=== PATIENT | male | born 1985 | race American Indian/Alaskan Native ===

== ENCOUNTER 2017-01-05 22:27 | Emergency (ER) | payer MEDICAID, OTHER ==
[2017-01-05 23:37] VITALS: BP 128/66
[2017-01-06] MEDS ORDERED: Ketorolac 30 MG/ML SDV IM ONE (00:04)
[2017-01-06 00:41] LABS: CHLORIDE,CL 106 mmol/L (101-111); SODIUM,NA 139 mmol/L (135-145)
--- NOTE | 2017-01-06 01:23 | EDM.PDOC ---
ED UPPER BACK/NECK PAIN/INJURY - General Chief Complaint: Back Pain or Injury Stated Complaint: SL AMB Time Seen by Provider: 01/05/17 23:40 Source of Information: Reports: Patient, EMS History Limitations: Reports: No limitations - History of Present Illness INITIAL COMMENTS - FREE TEXT/NARRATIVE: c/o neck pain and headache after playing basketball tonight. No new injury. States piled one month ago and seen in ER. ( Injury date per ED record September 2016) Pain similar to common pain since injury. Ran out of ibuprofen yesterday. Headache complaint not new for patient has had similar since initial incident. Also noting problems with memory since incident in September. Requesting repeat xrays. No clinic follow up. Denied drug use, admitted to shot of [employer]. Location: Reports: paraspinal, generalized (headache) Quality: Reports: Same as previous episode Severity: mild Context: Reports: trauma (remote), chronic pain/injury (since injury) Associated Symptoms: Reports: Headache. Denies: Nausea/vomiting, Weakness - Related Data Allergies/ADRs: Allergies Allergy/AdvReac Type Severity Reaction Status Date / Time No Known Allergies Allergy Verified 01/05/17 23:37 Home Meds: Home Meds . [No Known Home Meds] 09/21/13 [History] Past Medical History - Past Health History Medical/Surgical History: Denies Medical/Surgical History HEENT History: Reports: None Cardiovascular History: Reports: None Respiratory History: Reports: None Gastrointestinal History: Reports: None Genitourinary History: Reports: None Musculoskeletal History: Reports: None, Other (see below) Other Musculoskeletal History: Torn meniscus Neurological History: Reports: None, Migraines Psychiatric History: Reports: Depression Other Psychiatric History: suicidal thoughts past Endocrine/Metabolic History: Reports: None Hematologic History: Reports: None Immunologic History: Reports: None Oncologic (Cancer) History: Reports: None Dermatologic History: Reports: None Social & Family History - Family History Family Medical History: Noncontributory - Tobacco Use Smoking Status *Q: Current Every Day Smoker Years of Tobacco use: 17 Packs/Tins Daily: 0.1 Used Tobacco, but Quit: No Second Hand Smoke Exposure: No - Caffeine Use Caffeine Use: Reports: None - Alcohol Use Days Per Week of Alcohol Use: 0 - Recreational Drug Use Recreational Drug Use: No Drug Use in Last 12 Months: Yes Recreational Drug Type: Reports: Methamphetamine Recreational Drug Use Frequency: Socially - Living Situation & Occupation Living situation: Reports: with family Occupation: unemployed ED ROS GENERAL - Review of Systems Review Of Systems: See Below Constitutional: Reports: no symptoms HEENT: Reports: No symptoms Respiratory: Reports: No Symptoms Cardiovascular: Reports: No symptoms GI/Abdominal: Reports: No symptoms Musculoskeletal: Reports: neck pain Skin: Reports: no symptoms Neurological: Reports: Headache, Other (Notes nonspecific problems with memory since initial trauma in September) ED EXAM, UPPER BACK/NECK PAIN - Physical Exam Exam: See Below Exam Limited By: No limitations General Appearance: alert, mild distress (light sensitive, covering face with shirt) Eye Exam: bilateral eye: EOMI, PERRL Ears Exam: normal external exam, normal TMs Nose Exam: normal inspection Throat/Mouth Exam: Normal inspection Head Exam: atraumatic, normocephalic, scalp tenderness (bilateral occipital) Neck Exam: normal alignment, paraspinous muscle tender, tender lateral. No: limited range of motion, painful range of motion, spinous processes tender, tender midline Nexus Criteria: evidence of intoxication (faint odor ETOH). No: posterior, midline cervical tenderness, altered level of consciousness, focal neurological deficit, painful distracting injuries Cardiovascular/Respiratory: regular rate, rhythm, normal peripheral pulses GI/Abdominal: normal bowel sounds, soft Back Exam: normal inspection, full range of motion. No: paraspinal tenderness Extremities: normal inspection, normal range of motion Neurologic: no motor/sensory deficits, alert. No: motor weakness, sensory deficit Psychiatric: flat affect (avoidant slight agitation with admission question) Skin Exam: Normal color, Warm/dry. No: Diaphoresis, Ecchymosis Course - Vital Signs Last Recorded V/S: Last Vital Signs Temp 97.8 F 01/05/17 23:31 Pulse 71 01/05/17 23:31 Resp 18 01/05/17 23:31 BP 128/66 01/05/17 23:31 Pulse Ox 98 01/05/17 23:31 - Orders/Labs/Meds Labs: Laboratory Tests 01/06/17 01/06/17 01/06/17 Range/Units 00:14 00:14 00:40 WBC 7.1 (5.0-10.0) 10^3/uL RBC 4.84 (4.6-6.2) 10^6/uL Hgb 14.4 (14.0-18.0) g/dL Hct 43.2 (40.0-54.0) % MCV 89.3 (80-100) fL MCH 29.8 (27.0-34.0) pg MCHC 33.3 (33.0-35.0) g/dL Plt Count 210 (150-450) 10^3/uL Neut % (Auto) 55.1 (42.2-75.2) % Lymph % (Auto) 23.6 (20.5-50.1) % Ritchie % (Auto) 11.2 H (2-8) % Eos % (Auto) 9.5 H (1.0-3.0) % Baso % (Auto) 0.6 (0.0-1.0) % Sodium 139 (135-145) mmol/L Potassium 3.8 (3.6-5.0) mmol/L Chloride 106 (101-111) mmol/L Carbon Dioxide 26.0 (21.0-31.0) mmol/L Anion Gap 10.8 BUN 16 (7-18) mg/dL Creatinine 1.0 (0.6-1.3) mg/dL Est Cr Clr Drug Dosing 136.63 mL/min Estimated GFR (MDRD) > 60 BUN/Creatinine Ratio 16.00 Glucose 90 (74-105) mg/dL Calcium 8.8 (8.4-10.2) mg/dl Total Bilirubin 0.4 (0.2-1.0) mg/dL AST 63 H (10-42) IU/L ALT 101 H (10-60) IU/L Alkaline Phosphatase 95 (42-121) IU/L Total Protein 7.5 (6.7-8.2) g/dl Albumin 3.7 (3.2-5.5) g/dl Globulin 3.8 Albumin/Globulin Ratio 0.97 Urine Opiates Screen Negative (NEGATIVE) Ur Oxycodone Screen Negative (NEGATIVE) Urine Methadone Screen Negative (NEGATIVE) Ur Barbiturates Screen Negative (NEGATIVE) U Tricyclic Antidepress Negative (NEGATIVE) Ur Phencyclidine Scrn Negative (NEGATIVE) Ur Amphetamine Screen Positive H (NEGATIVE) U Methamphetamines Scrn Positive H (NEGATIVE) Urine MDMA Screen Negative (NEGATIVE) U Benzodiazepines Scrn Negative (NEGATIVE) Urine Cocaine Screen Negative (NEGATIVE) U Marijuana (THC) Screen Positive H (NEGATIVE) Ethyl Alcohol < 5 mg/dL Meds: Medications Discontinued Medications Generic Name Dose Route Start Last Admin Trade Name Aubrey PRN Reason Stop Dose Admin Ketorolac Tromethamine 30 mg 01/06/17 00:04 01/06/17 00:11 Toradol IM 01/06/17 00:05 30 mg ONETIME ONE Administration - Radiology Interpretation Free Text/Narrative:: CT head and neck negative. - Re-Assessments/Exams Free Text/Narrative Re-Assessment/Exam: 01/06/17 05:09 Toradol for discomfort, dozing , arouses easily. UDS positive for methamphetamine. Departure - Departure Time of Disposition: 01:20 Disposition: Home, Self-Care 01 Condition: good Clinical Impression: Neck pain, Methamphetamine abuse, Positive urine drug screen Headache Qualifiers: Headache type: unspecified Headache chronicity pattern: chronic headache Intractability: not intractable Qualified Code(s): R51 - Headache Instructions: Muscle Strain, [id number] Referrals: PCP,None [Primary Care Provider] - Forms: ED Department Discharge Additional Instructions: alternate tylenol and ibuprofen for discomfort follow up in clinic with primary care provider if continued symptoms
== END 2017-01-06 01:31 | disposition home or self-care (01) ==
LOC: DL.ED 22:27
DX: M54.2 Cervicalgia (principal); R51 Headache; F15.10 Other stimulant abuse, uncomplicated; F32.9 Major depressive disorder, single episode, unspecified; F17.210 Nicotine dependence, cigarettes, uncomplicated; Y93.67 Activity, basketball
CPT/HCPCS: 36415; 70450; 72125; 80053; 80305; 85025; 96372; 99284; G0480; J1885